=== PATIENT | female | born 1955 | race Caucasian/White ===

== ENCOUNTER → 2018-12-07 07:37 | Outpatient (CLI) | payer MEDICAID, SELFPAY ==
--- NOTE | 2018-12-07 07:40 | BI_ITS ---
MAMMOGRAPHY - BILATERAL SCREENING REASON FOR EXAM: Female, 63 years old. Routine annual screening examination. PERTINENT HISTORY: Non-contributory. Prior left stereotactic breast biopsy. TECHNIQUE: Digital bilateral breast renetta (3D mammographic acquisition) in the CC and MLO projections. 2-D mediolateral oblique (MLO) and craniocaudad (CC) views of both breasts were obtained. CAD: Full Field Digital Mammography with Computer Added Detection was performed. COMPARISON: Comparison is made with prior study dated January 09, 2016 and March 09, 2013. FINDINGS: Breast Composition: The breasts are extremely dense, which lowers the sensitivity of mammography. There are no dominant masses or suspicious calcifications. A tissue clip marker is now seen in the upper lateral portion of the left breast. Decreased calcification. No other significant abnormalities are identified. BI/SCREENING MAMM (CAD), BILAT IMPRESSION: Stable bilateral screening mammogram. Yearly follow-up mammogram recommended. (A) ASSESSMENT CATEGORY: BIRADS Category 2: Benign. A letter regarding these results will be sent to the patient by the facility within 30 days. Approximately 10% of breast cancers are not detected by mammography. A normal mammogram should not delay biopsy of a clinically suspicious abnormality. [id number] Electronically Signed: Werner Hinds MD at 9:46 EST , Service support ,
== END ==
PROVIDERS: Referring Provider Nurse Practitioner Family; Visit Provider Nurse Practitioner Family
DX: Z12.31 Encounter for screening mammogram for malignant neoplasm of breast (principal)
CPT/HCPCS: 77063; 77067

== ENCOUNTER → 2021-06-27 10:29 | Outpatient (CLI) | payer MEDICARE, SELFPAY ==
--- NOTE | 2021-06-27 10:55 | RAD_ITS ---
ACR Level 3 findings have been noted. An addendum which confirms receipt of the report will follow. STUDY: X-RAY CHEST REASON FOR EXAM: Female, 66 years old. Smoker TECHNIQUE: Frontal and lateral views of the chest COMPARISON: None. FINDINGS: There is a 4.6 x 4.5 cm rounded mass in the left upper lobe which is highly suspicious for neoplasm. There are no pulmonary infiltrates There are no pleural effusions. There is no pneumothorax. The heart is normal in size. The visualized osseous structures are within normal limits. RAD/Chest PA and Lateral IMPRESSION: 4.6 x 4.5 cm rounded mass in the left upper lobe which is highly suspicious for neoplasm. Further evaluation with CT is recommended. Electronically Signed: Angus Payne MD at 12:35 EDT Tel , Service support ,
[2021-06-27 11:27] LABS: Absolute Lymphocyte Count 1.55 X10^3/uL (0.83-4.51); Absolute Neutrophil Count 3.5 X10^3/uL (2.0-7.7); Basophil# 0.04 X10^3/uL; Basophil% 0.7 % (0-1); Eosinophil# 0.03 X10^3/uL; Eosinophils% 0.5 % (0-5); Hematocrit 47.1 % (37-47); Hemoglobin 15.4 g/dL (12.0-15.0); Lymphocyte # 1.55 X10^3/ul (0.83-4.51); Lymphocyte % 27.7 % (19-41); Mean Corp Hgb Conc 32.7 g/dL (32-36); Mean Corpuscular Hgb 31.4 pg (27.0-32.0); Mean Corpuscular Volume 96.1 fL (81-99); Mean Platelet Vol. 9.6 fl (6.2-12.0); Monocyte% 7.2 % (0-10); NRBC Flagged by Analyzer 0 % (0-5); Neutrophil # 3.51 X10^3/uL (2.7-7.7); Neutrophil % 62.8 % (47-70); Platelet Count 295 K/mm3 (150-450); RBC Distribution Width CV 12.4 % (11.6-14.6); RBC Distribution Width SD 43.8 fl (35.1-43.9); White Blood Count 5.6 K/mm3 (4.4-11.0)
[2021-06-27 11:56] LABS: Vitamin B12 476 pg/mL (211-911)
[2021-06-27 12:09] LABS: ALB/GLOB Ratio 0.7 RATIO (0.9-2.4); AST(SGOT) 33 U/L (15-37); Alanine Aminotransfer ALT/SGPT 30 U/L (13-56); Albumin, Serum 3.4 g/dL (3.2-5.0); Alkaline Phosphatase 96 U/L (45-117); Anion Gap 4 (5-15); BUN 6 mg/dL (7-18); BUN/Creat Ratio 11.2 RATIO (10-20); Calcium,Total 9.3 mg/dL (8.5-10.1); Chloride 103 mmol/L (98-107); Creatinine, Serum 0.54 mg/dL (0.55-1.02); EST Glomerular Filtration Rate 121 mL/min (>60); Est Glom Filt Rate - Afr Amer 147 mL/min (>60); Globulin 4.7 g/dL (2.2-4.2); Glucose 102 mg/dL (74-106); Potassium 3.9 mmol/L (3.5-5.1); Protein, Total 8.1 g/dL (6.4-8.2); Sodium Level 135 mmol/L (136-145); T4 Free Direct 0.81 ng/dL (0.76-1.46); Thyroid Stim Hormone (TSH) 0.91 uIU/mL (0.358-3.74)
[2021-06-27 13:30] LABS: Iron 44 ug/dL (50-170); Iron Binding Capacity,Total 352 ug/dL (250-450); PERCENT IRON SATURATION 12.5 % (15.0-55.0)
[2021-06-28 11:21] LABS: Thyroid Peroxidase AB < 8 IU/mL (0-34)
[2021-07-02 18:10] LABS: Vitamin D 1,25-Dihydroxy 53.3 pg/mL (19.9-79.3)
== END ==
LOC: LAB 10:44 → RAD 10:44 → LAB 10:45
DX: R19.7 Diarrhea, unspecified (principal); F17.200 Nicotine dependence, unspecified, uncomplicated; R63.4 Abnormal weight loss; E55.9 Vitamin D deficiency, unspecified; R53.83 Other fatigue
CPT/HCPCS: 36415; 71046; 80053; 82607; 82652; 82746; 83540; 83550; 84439; 84443; 85025; 86376

== ENCOUNTER → 2021-07-01 08:40 | Outpatient (CLI) | payer MEDICARE, SELFPAY | PROVIDERS: Referring Provider Nurse Practitioner Adult Health; Visit Provider Nurse Practitioner Adult Health | DX: R19.7 Diarrhea, unspecified (principal); R63.4 Abnormal weight loss | CPT/HCPCS: 82274 ==

== ENCOUNTER → 2021-07-03 06:43 | Outpatient (CLI) | payer MEDICARE, SELFPAY ==
--- NOTE | 2021-07-03 06:50 | CT_ITS ---
ACR Level 3 findings have been noted. An addendum which confirms receipt of the report will follow. STUDY: CT CHEST WITH CONTRAST REASON FOR EXAM: Female, 66 years old. BENIGN NEOPLASM OF LEFT BRONCHUS AND LUNG RADIATION DOSAGE (If Supplied By Facility): CTDIvol = ( 7.86 ) mGy, DLP = ( 224.69 ) mGycm TECHNIQUE: Transaxial imaging was performed following intravenous administration of IV 50mL Isovue-370. Multiplanar coronal and sagittal images were reformatted. Individualized dose optimization techniques were used for this CT. COMPARISON: 03/24/2013 FINDINGS: 4.2 x 3.8 x 4.6 cm spiculated left upper lobe pulmonary mass with lateral pleural tethering. 4 mm left lower lobe subpleural nodule. There are a few scattered groundglass densities in both lungs. There is no demonstrated pleural abnormality. Normal heart and pericardium. Normal mediastinum. Small left hilar lymph nodes. Normal enhanced pulmonary arteries. Normal aorta arch and descending thoracic aorta. There are multi-level degenerative changes of the thoracic spine. There is no demonstrated abnormality of the visualized upper abdomen. CT/Chest WITH Contrast IMPRESSION: 4.2 cm left upper lobe pulmonary mass is highly suspicious for lung cancer. Small left hilar lymph nodes may represent local regional spread. Electronically Signed: Chele Gee MD at 7:51 EDT Tel , Service support ,
== END ==
PROVIDERS: Referring Provider Nurse Practitioner Adult Health; Visit Provider Nurse Practitioner Adult Health
DX: D14.32 Benign neoplasm of left bronchus and lung (principal); R63.4 Abnormal weight loss; R53.83 Other fatigue
CPT/HCPCS: 71260

== ENCOUNTER → 2021-07-15 15:56 | Outpatient (CLI) | payer MEDICARE, SELFPAY ==
--- NOTE | 2021-07-15 13:30 | PET_ITS ---
EXAMINATION: FDG PET-CT INDICATIONS: A 66-year-old female with history of pulmonary nodularity. COMPARISON EXAMINATION: CT of the chest report dated 07/03/21 INDEX LESION SIZE SUV INTERPRETATION Left upper lung-left upper lobe 41.7 x 41.2-mm (frame 192) 14.5 Fulfills quantitative criteria for viable neoplasm, histopathologic analysis recommended NON-INDEX LESION SIZE SUV INTERPRETATION Diffuse non-nodular proximal to mid gastric body 5.0 (max) May warrant further investigation with direct visualization if the patient demonstrates corresponding epigastric symptomatology TECHNIQUE: Following the intravenous administration of 13.68 mCi of F-18 deoxyglucose via the left antecubital fossa, multiplanar image acquisitions of the neck, chest, abdomen and pelvis to level of mid thigh, obtained at one hour post radiopharmaceutical administration contemporaneously interpreted with the current CT of the neck, chest, abdomen and pelvis, to level of mid thigh, dated 07/15/[address] of the chest report dated 07/03/21 reveals: BLOOD GLUCOSE LEVEL:?? 89 mg/dl?HEIGHT:?64 inches?WEIGHT: 115 lbs. FINDINGS: 1. An increase in FDG distribution is defined in the left upper lung-left upper lobe generating a calculated maximal standard uptake value of 14.5. The maximal axial diameter of the corresponding parenchymal density-mass on review of CT of the chest dated 07/15/21 is 41.7-mm (transverse) x 41.2-mm (AP). 2. Diffuse non-nodular increased FDG concentration extends from the proximal to mid gastric body generating a calculated maximal standard uptake value of 5.0. 3. Normal physiologic distribution of the radiopharmaceutical is apparent in the hepatic (2.0) and splenic parenchyma, both renal units, bladder and visualized intestinal tract. The visualized portion of the cerebral cortical-subcortical structures demonstrate symmetric and preserved glucose metabolism. Diffuse radiopharmaceutical concentration is noted in all four quadrants of the abdomen and pelvis. Pertinent CT findings are as follows: CHEST: There is atherosclerotic calcification defined in the thoracic aorta without evidence of dilatation-aneurysm formation. Coronary arterial calcification is observed. Bilateral subcentimeter axillary soft tissue densities with fatty hilus are non-glucose avid. There are no additional parenchymal densities-nodules defined in the right and left hemithorax with discernible increased FDG concentration. ABDOMEN AND PELVIS: There is borderline fatty metamorphosis-steatosis defined in the hepatic parenchyma. There is atherosclerotic calcification defined in the abdominal aorta without evidence of dilatation-aneurysm formation. Pelvic arterial calcification is defined. Bilateral inguinal soft tissue densities with fatty hilus are ametabolic. SKELETAL: Degenerative changes are noted in the cervical, thoracic and lumbar spine without evidence of increased radiopharmaceutical concentration. There is no evidence of sclerotic, mixed sclerotic-lytic and/or lytic changes noted on review of the skeletal structures manifesting an increase in glucose metabolism. PET/PET/CT Tumor Base -Thigh Init IMPRESSION: 1. Increased FDG concentration observed in the left upper lung-left upper lobe fulfills quantitative criteria for malignant transformation. Histopathologic analysis is recommended. (Judith et al, Annals of Internal Medicine, 138:724, 2003). 2. Diffuse non-nodular enhanced fluorine labeled glucose uptake extending from the proximal to mid gastric body is most consistent with physiologic radiopharmaceutical concentration. If the patient demonstrates corresponding epigastric symptomatology, correlation with direct visualization is advised. Electronic Signature Wolf Monroy D.O. Accurate Quantification of SUVs for this report are calculated using the exclusive [employer]. (U.S. Patent No. 10, 674, 983). Standardization and correction of the FDG SUV metric via [employer] technology allow for vendor non-specific objective quantitative examination comparison and optimization of the sensitivity and specificity of the FDG PET-CT examination. Electronically Signed: Wolf Monroy DO at 21:29 EDT Tel , Service support ,
== END ==
PROVIDERS: Referring Provider Nurse Practitioner Adult Health; Visit Provider Nurse Practitioner Adult Health
DX: R91.1 Solitary pulmonary nodule (principal)
CPT/HCPCS: 78815; A9552

== ENCOUNTER → 2021-07-30 09:09 | Outpatient (CLI) | payer MEDICARE, SELFPAY ==
[2021-07-30] VITALS (11 sets, daily range): BP systolic 127–149; BP diastolic 61–87; PULSE 77–100; RESP 13–25; TEMP 36.8; O2SAT 87–99; BMI 19.4
--- NOTE | 2021-07-30 | IMM_PTH ---
PATIENT: MEREDITH BLUE LOC: CT U#:[id number] AGE/SX: 70/F ROOM: RE07/30/[address]: Dr. Ari Masterson MD : 1955 BED: DIS: SPEC #: [id number] RECD: 07/30/21 13:53 STATUS: SHIVA REQ #: [id number] MARIA ESTHER: 07/30/21 00:[address]: Ari Masterson DEPT: IMMUNOHISTOCHEMISTRY RECD BY: Keeley Morillo ENTERED: 07/30/21 13:55 SP TYPE: IMMUNO OTHR DR: [facility], [place] Tissues: Left upper lobe of lung, NOS Procedures: RCC (add) NAPSIN A (add) CK20 (add) CK5-6 (add) CK7 (add) CK8 (add) HEP PAR (add) HI (add) TTF1 (add) Pankeratin (add) P40 (add) ER (initial) PHYSICIAN & [address] [address] SPECIMEN INFORMATION: Tissue Source: Left upper lobe lung, CT-guided core biopsy Clinical Info: Rule out non-small cell carcinoma Specimen Number: [id number] CPT code: 98641, 94698 x11 METHODOLOGY: Deparaffinized sections of prefer/formalin-fixed tissue or PAP/DQ stained slides are incubated with monoclonal/polyclonal antibodies/oligonucleotide probes. Localization is made via biotin free immunoperoxidase method. Appropriate controls are performed and reacted as expected. Results on target cell population are indicated in the following table: RESULTS: ANTIBODY / CLONE RESULT ER (6F11) positive, weak and focal HI (1E2) negative AE1-3 (AE1/AE3/PCK26) positive CK7 (OV-TL12/30) positive CK8 (11ikvwG47) positive CK20 (KS20.8) negative TTF-1 (8G7G3/1) positive Napsin A (Rabbit Polyclonal) positive HepPar (OCh1E5) positive RCC (PN-15) negative CK5-6 (D5 & 1684) negative P40 (BC28) negative These tests were developed and their performance characteristics determined by [facility]. They may not have been cleared or approved by the U.S. Food and Drug Administration. The FDA has determined that such clearance or approval is not necessary. The above immunohistochemical/dualISH markers are ordered and reviewed by the Pathologist. INTERPRETATION: Left upper lobe lung, CT-guided core biopsy: Non-small cell carcinoma, favor adenocarcinoma, consistent with lung primary. SJ:vijay 07/31/2021 Case has been reviewed in consultation with Dr. Nam who concurs with the above diagnosis. IDC:AM
--- NOTE | 2021-07-30 09:10 | CT_ITS ---
PROCEDURE: CT-guided percutaneous left lung biopsy. CLINICAL HISTORY: Female, 66 years old. LEFT UPPER LOBE LUNG MASS CONSENT: Informed, written consent was obtained from the patient, prior to procedure and following discussion of risks, benefits, alternatives and personnel. Patient oriented dose modulation technique utilized. SEDATION: VERSED 2 mg and FENTANYL 100 mcg intravenous. PERFORMING PHYSICIAN: Gilberto Espinoza MD DATE OF PROCEDURE: 07/30/2021 LINE SERVICE PERSON: NONE ESTIMATED BLOOD LOSS: Minimal. SPECIMENS REMOVED: Sample sent to laboratory with appropriate orders. COMPLICATIONS: Parenchymal contusions. TECHNIQUE: Patient was positioned supine on the CT table. A timeout procedure was obtained. Limited CT scan imaging of the chest was performed and demonstrated the 5.5 cm left upper lobe lung mass. An access site was marked on the patient''s skin after which the overlying skin was prepared and draped in standard, sterile fashion. The skin was anesthetized with lidocaine and a small skin incision was made. Under CT fluoroscopic guidance a 17-gauge coaxial introducer needle was intermittently advanced into the left upper lobe lung mass. An 18 gauge coaxial core biopsy needle was then inserted through the needle and a core biopsy specimen was obtained and evaluated by the pathologist on site. Two additional 18-gauge core biopsy specimens were then obtained and placed in formalin and sent to lab for analysis. The access needle was removed and sterile dressing was applied. Follow-up imaging demonstrated no evidence of pneumothorax however there were parenchymal contusions seen around of the mass. The patient tolerated the procedure well with no immediate complications and was transferred to recovery in stable condition. Serial follow-up chest x-rays will be obtained. CT/Biopsy/Inj or Needle Placement IMPRESSION: Technically successful percutaneous CT biopsy of a left upper lobe lung mass, three 18-gauge core biopsy specimens were obtained and sent to lab for analysis. Procedure was complicated with focal parenchymal contusions, follow-up chest x-rays will be obtained. Electronically Signed: Gilberto Espinoza MD at 11:48 EDT Tel , Service support ,
[2021-07-30 09:24] LABS: Absolute Lymphocyte Count 1.53 X10^3/uL (0.83-4.51); Absolute Neutrophil Count 3.9 X10^3/uL (2.0-7.7); Basophil# 0.04 X10^3/uL; Basophil% 0.7 % (0-1); Eosinophil# 0.01 X10^3/uL; Eosinophils% 0.2 % (0-5); Hemoglobin 15.5 g/dL (12.0-15.0); Lymphocyte # 1.53 X10^3/ul (0.83-4.51); Lymphocyte % 25.1 % (19-41); Mean Corp Hgb Conc 33.7 g/dL (32-36); Mean Corpuscular Hgb 32.2 pg (27.0-32.0); Mean Corpuscular Volume 95.4 fL (81-99); Mean Platelet Vol. 9.1 fl (6.2-12.0); Monocyte# 0.55 X10^3/uL; NRBC Flagged by Analyzer 0 % (0-5); Neutrophil # 3.94 X10^3/uL (2.7-7.7); Neutrophil % 64.5 % (47-70); Platelet Count 296 K/mm3 (150-450); RBC Distribution Width CV 14.9 % (11.6-14.6); RBC Distribution Width SD 52.9 fl (35.1-43.9); Red Blood Count 4.82 M/mm3 (4.2-5.4); White Blood Count 6.1 K/mm3 (4.4-11.0)
[2021-07-30 09:32] LABS: Partial Thromboplast Time 25.7 Seconds (24.1-36.2); Prothrombin Time (Protime)PT. 12.1 SECONDS (11.7-14.9)
--- NOTE | 2021-07-30 10:30 | ASPIGT_PTH ---
PATIENT: MEREDITH BLUE LOC: CT U#:[id number] AGE/SX: 70/F ROOM: RE07/30/[address]: Dr. Ari Masterson MD : 1955 BED: DIS: SPEC #: [id number] RECD: 07/30/21 11:18 STATUS: SHIVA REEzekiel #: [id number] MARIA ESTHER: 07/30/21 10:[address]: Ari Masterson DEPT: SURGICAL PATHOLOGY RECD BY: Pily Savage ENTERED: 07/30/21 11:18 SP TYPE: ASP RAD OTHR DR: [facility] Tissues: Lung, NOS Procedures: FNA Specimen Adequacy Special Stain Group II Surgery Specimen Level IV Imprint (control) HEADER OPERATION: Left upper lobe, CT-core biopsy PRE-OP DIAGNOSIS: Left lung mass TISSUE SUBMITTED: Left lung 18-gauge core x3 MICROSCOPIC DIAGNOSIS Left lung, CT-guided core biopsy: Non-small cell carcinoma, favor adenocarcinoma, consistent with lung primary. See comment. BREANNE:vijay 07/31/2021 COMMENT The specimen is evaluated at the time of biopsy by Dr. Cantrell. Immediate Evaluation = Malignant cells present derived from non-small cell carcinoma. Immunohistochemistry ([id number]) supports the above diagnosis. The tumor also shows focal necrosis and extensive desmoplastic reaction (fibrosis). Molecular studies on the tumor can be performed if clinically indicated. Please notify the laboratory if they are needed. Case has been reviewed in consultation with Dr. Nam who concurs with the above diagnosis. IDC:AM MICROSCOPIC DESCRIPTION Slides are reviewed. GROSS DESCRIPTION Received in fixative is one container labeled with the patient's name and designated left lung. The specimen consists of multiple elongated fragments of carrillo soft tissue that in aggregate measure 1.5 x 0.1 x 0.1 cm. The specimen is totally submitted in one cassette. One touch imprint is prepared at the time of core biopsy. / BREANNE:vijay 07/30/21 TC:0 CPT: 70250, 23993
[2021-07-30] MEDS: Midazolam 2 MG/2 ML Syringe IV ×2 (10:31→10:38)
[2021-07-30] MEDS: fentaNYL 100 MCG/2 ML Ampul IV ×2 (10:32→10:38)
[2021-07-30] MEDS: 0.9% Saline Lock 10 ML Syringe IV (10:34)
[2021-07-30] MEDS: Lidocaine 2% (20 ml mdv) 20 ML Vial INFILT (10:40)
--- NOTE | 2021-07-30 11:00 | RAD_ITS ---
INDICATION: POST BIOPSY -- immediately post lung biopsy EXAMINATION/TECHNIQUE: X-RAY - XR Chest 2 Views COMPARISON: 06/27/2021. FINDINGS: LINES/DEVICES: None. LUNGS: 5.5 cm mass visualized in the left upper lobe demonstrating subtle haziness in its contour is most prominent inferiorly consistent with the parenchymal contusions visualized on CT scan. No evidence of pneumothorax is visualized, mild blunting of the left costophrenic angle is seen in comparison to the prior study that could represent subtle layering of the parenchymal contusions. Unremarkable aeration of the right hemithorax. The bronchovascular and interstitial lung markings otherwise unremarkable. MEDIASTINUM AND CARDIOVASCULAR STRUCTURES: Cardiac silhouette not enlarged. Central airways and mediastinal contour are unremarkable. BONES AND SOFT TISSUES: Unremarkable. RAD/Chest Insp/Exp 2 View IMPRESSION: 5.5 cm parenchymal lung mass visualized in the left upper lobe with subtle adjacent parenchymal contusion, no evidence of pneumothorax is seen. Electronically Signed: Gilberto Espinoza MD at 11:27 EDT Tel , Service support ,
[2021-07-30 11:45] LABS: CREATININE FINGERSTICK 0.7 mg/dL (0.55-1.02); EGFR FINGERSTICK > 60.0000 mL/min (>60)
--- NOTE | 2021-07-30 13:00 | RAD_ITS ---
INDICATION: 2 HRS POST BIOPSY -- 2 hours post lung biopsy EXAMINATION/TECHNIQUE: X-RAY - XR Chest 2 Views COMPARISON: Chest x-ray obtained the same day at 10:56 AM. FINDINGS: LINES/DEVICES: None. LUNGS: 5.5 cm mass visualized in the left upper lung demonstrates no significant change in comparison to the prior study. No significant stranding of the adjacent soft tissues is visualized, subtle haziness along the lateral aspect of the left upper chest wall demonstrates no significant increase in comparison to the prior study. No evidence of layering fluid is visualized, the left costophrenic angle is unremarkable. No evidence of pneumothorax is seen. MEDIASTINUM AND CARDIOVASCULAR STRUCTURES: Cardiac silhouette not enlarged. Central airways and mediastinal contour are unremarkable. BONES AND SOFT TISSUES: Unremarkable. RAD/Chest Insp/Exp 2 View IMPRESSION: Left upper lobe mass again visualized. No evidence of increased parenchymal hemorrhage or pneumothorax is seen in comparison to the prior study. Electronically Signed: Gilberto Espinoza MD at 13:10 EDT Tel , Service support ,
== END | disposition home or self-care (01) ==
PROVIDERS: Referring Provider Internal Medicine Hematology & Oncology; Visit Provider Internal Medicine Hematology & Oncology
DX: C34.12 Malignant neoplasm of upper lobe, left bronchus or lung (principal)
CPT/HCPCS: 36415; 71046; 77012; 85025; 85610; 85730; 88172; 88305; 88313; 88341; 88342; 99156; J7040; A4216

== ENCOUNTER → 2021-07-30 10:40 | Outpatient (CLI) | payer MEDICARE, SELFPAY ==
--- NOTE | 2021-07-30 10:42 | MRI_ITS ---
EXAM: MR HEAD WITHOUT AND WITH INTRAVENOUS CONTRAST CLINICAL INDICATION: LUNG MASS TECHNIQUE: Multiplanar and multisequence MR images of the brain were obtained without and with intravenous contrast. This report was created using [employer] report generation technology. CONTRAST: IV 10mL dOTAREM COMPARISON: None. FINDINGS: BRAIN AND EXTRA-AXIAL SPACES: No diffusion weighted signal abnormality. No intra- or extra-axial hemorrhage. SELLA: Unremarkable. Normal sella turcica, pituitary gland, infundibular stalk, optic chiasm and hypothalamus. AUDITORY SYSTEM: Unremarkable. The internal auditory canals are patent. BONES/JOINTS: Unremarkable. No discrete lytic or blastic abnormalities. SINUSES: Unremarkable as visualized. Clear. MASTOID AIR CELLS: Unremarkable as visualized. Clear. ORBITS: Unremarkable as visualized. Both globes, extraocular muscles, optic nerves and retrobulbar fat appear unremarkable. VASCULATURE: Venous angioma in the left frontal lobe. MRI/Brain W/WO Contrast IMPRESSION: Venous angioma in the left frontal lobe. Electronically Signed: Christopher Guevara MD at 18:21 EDT , Service support ,
== END ==
LOC: MRI 10:42
PROVIDERS: Visit Provider Internal Medicine Hematology & Oncology
DX: Z01.818 Encounter for other preprocedural examination (principal); C34.12 Malignant neoplasm of upper lobe, left bronchus or lung
CPT/HCPCS: 32408; 36415; 70553; 71046; 77012; 85025; 85610; 85730; 88172; 88305; 88313; 88341; 88342; 99156; A9575; J7040; A4216

== ENCOUNTER → 2021-08-11 09:30 | Outpatient (CLI) | payer MEDICARE, SELFPAY ==
--- NOTE | 2021-08-12 08:32 | PFT ---
INTRODUCTION: The patient is a 66-year-old female that presents for pulmonary function studies secondary to a diagnosis of lung mass. Respiratory therapy reported good patient effort. Bronchodilators were used during testing. INTERPRETATION: Forced expiration spirometry demonstrates the presence of a mild large airways obstructive ventilatory defect. There was no significant response to aerosolized bronchodilators. Spirograms are of good quality and plateau gradually indicating slow emptying of the lungs. Body plethysmography was performed and reveals lung volumes to be within normal limits. Diffusing capacity by single breath CO is also within normal limits. IMPRESSION: Irreversible mild large airways obstructive ventilatory defect with preserved lung volumes and diffusing capacity.
== END ==
PROVIDERS: Referring Provider Internal Medicine Hematology & Oncology; Visit Provider Internal Medicine Hematology & Oncology
DX: C34.12 Malignant neoplasm of upper lobe, left bronchus or lung (principal); R91.1 Solitary pulmonary nodule
CPT/HCPCS: 94060; 94726; 94729

== ENCOUNTER → 2021-09-01 12:31 | Outpatient (CLI) | payer MEDICARE, SELFPAY ==
--- NOTE | 2021-09-01 12:34 | STEWCON_ITS ---
Reason For Study: PREOP Stress Results Protocol: Antonio Protocol WITH DEFINITY Maximum Predicted HR: 154 bpm Target HR: 131 bpm % Maximum Predicted HR: 88 % DurationHeart Rate Stage (mm:ss) (bpm) BP Comment BASELINE 81 120/745 CC DEFINITY, USED FOR RESPIRATORY STAGE 1 3:00 116 142/82 STAGE 2 3:00 130 162/80 STAGE 3 1:21 136 / SOB NOTED, NO CHEST PAIN RECOVERY 96 128/84 Stress Duration: 7:21 mm:ss Maximum Stress HR: 136 bpm Baseline Echocardiogram Findings Stress Echo Wall motion Data Resting WM Intermediate WM Stress WM Resting Wall Motion Wall Motion Stress All segments Normal. All segments Hyperkinetic. Ejection Fraction 55 %. Ejection Fraction 70 %. Stress Results Heart rate response: Adequate Blood pressure response: Normal resting blood pressure-appropriate response Rhythm: Rare PVC during exercise and recovery Functional capacity: Average Stop secondary to: Dyspnea. EKG Data Baseline ECG: Sinus rhythm. Peak exercise ECG: Somatic/motion artifact with no obvious ECG changes. Symptoms with Stress No complaint of chest discomfort during exercise or recovery. ECHO/Stress Test Echo W/Contrast Interpretation Summary Contrast injection performed Negative (adequate) stress echocardiogram Ordering Physician: ALAYNA HAWLEY Referring Physician: ALAYNA HAWLEY Performed By: Omaira Whitt, RDCS, RVT
== END ==
DX: Z01.818 Encounter for other preprocedural examination (principal); C34.12 Malignant neoplasm of upper lobe, left bronchus or lung; R06.02 Shortness of breath
CPT/HCPCS: 93017; 93350; Q9957; A4216; C8928; J3490

== ENCOUNTER → 2021-09-11 | Outpatient (CLI) | payer MEDICARE, SELFPAY ==
[2021-09-11 22:16] LABS: Probe Check PASS; Specimen Processing Control PASS
== END | disposition home or self-care (01) ==
LOC: LABSPEC 09:35
PROVIDERS: Referring Provider Physician Assistant; Visit Provider Physician Assistant
DX: U07.1 COVID-19 (principal)
CPT/HCPCS: 87635; U0005; U0003

== ENCOUNTER → 2021-10-08 13:26 | Outpatient (CLI) | payer MEDICARE, SELFPAY ==
--- NOTE | 2021-10-08 13:29 | EKG12_ITS ---
Test Reason : UNSPEC AFIB Blood Pressure : / mmHG Vent. Rate : 090 BPM Atrial Rate : 090 BPM P-R Int : 114 ms QRS Dur : 082 ms QT Int : 390 ms P-R-T Axes : 069 026 236 degrees QTc Int : 477 ms Normal sinus rhythm T wave abnormality, consider inferior ischemia T wave abnormality, consider anterolateral ischemia Prolonged QT Abnormal ECG Confirmed by CHAMP DE PAZ, DEOBRAH ([id number]), newspaper photo editor ANUPAMA SWAIN ([id number]) on 10/10/2021 1:02:11 PM Referred By: Petra Qiu Confirmed By:DEBORAH OAKES MD
== END ==
LOC: PSN 13:28
PROVIDERS: Referring Provider Nurse Practitioner Adult Health; Visit Provider Nurse Practitioner Adult Health
DX: I48.91 Unspecified atrial fibrillation (principal)
CPT/HCPCS: 93005

== ENCOUNTER 2021-12-29 10:56 | Outpatient (CLI) | payer MEDICARE, SELFPAY ==
--- NOTE | 2021-12-29 11:03 | ECHOD_ITS ---
Version 2 Reason For Study: A. fib Procedure This was a 2D Doppler, Color Flow transthoracic echocardiogram. Exam performed in department. Left Ventricle Normal LV size. Left ventricular systolic function is normal. The estimated ejection fraction is 60 %. Stage 1 diastolic dysfunction. No regional wall motion abnormalities noted. Right Ventricle Normal RV size. Normal systolic function. Atria Normal left atrium. Normal right atrium. Mitral Valve Normal mitral valve. Tricuspid Valve Normal tricuspid valve. Aortic Valve Normal aortic valve. Pulmonic Valve Normal pulmonic valve. Great Vessels Normal aortic root. The pulmonary artery is normal size. Normal inferior vena cava. Pericardium/Pleural No pericardial effusion. MMode/2D Measurements & Calculations LVIDd: 4.1 cm IVSd: 0.92 cm Ao root diam: 2.8 cm LVIDs: 2.6 cm LVPWd: 0.90 cm FS: 36.1 % LAV(MOD-bp): 22.0 ml LVAd ap4: 20.3 cm2 SV(MOD-sp4): 35.5 ml LAV(MOD-bp) Indexed: 14.2 ml/m2 LVLd ap4: 6.9 cm LAV(MOD-sp2): 16.4 ml EDV(MOD-sp4): 52.1 ml LAV(MOD-sp4): 28.5 ml EDV(sp4-el): 50.8 ml LVAs ap4: 10.7 cm2 LVLs ap4: 6.2 cm ESV(MOD-sp4): 16.6 ml ESV(sp4-el): 15.8 ml EF(MOD-sp4): 68.1 % EF(sp4-el): 68.9 % SV(sp4-el): 35.1 ml LA A4 area: 12.4 cm2 LA dimension(2D): 2.8 cm RA A4 area: 12.8 cm2 Doppler Measurements & Calculations MV E max louis: 35.9 cm/sec Lat Peak E' Louis: 7.6 cm/sec Med Peak E' Louis: 4.7 cm/sec MV A max louis: 61.2 cm/sec E/E' lat: 4.7 E/E' med: 7.7 MV E/A: 0.59 Ao V2 max: 128.6 cm/sec LV V1 max: 98.0 cm/sec PA V2 max: 93.5 cm/sec Ao max P.6 mmHg LV V1 max P.8 mmHg ECHO/Echo Complete Interpretation Summary Normal LV size. Left ventricular systolic function is normal. The estimated ejection fraction is 60 %. Stage 1 diastolic dysfunction. Compared to previous study, the left ventricular systolic function has improved .. Ordering Physician: Lj Martell Referring Physician: [facility] Performed By: Dayan King RDCS
== END 2021-12-29 23:59 | disposition home or self-care (01) ==
LOC: CVS 11:01
PROVIDERS: Referring Provider Internal Medicine Cardiovascular Disease; Visit Provider Internal Medicine Cardiovascular Disease
DX: I97.89 Other postprocedural complications and disorders of the circulatory system, not elsewhere classified (principal); I48.91 Unspecified atrial fibrillation
CPT/HCPCS: 93306

== ENCOUNTER 2022-01-06 13:14 | Outpatient (CLI) | payer MEDICARE, SELFPAY ==
--- NOTE | 2022-01-06 13:38 | CT_ITS ---
STUDY: CT CHEST T ABDOMEN WITH CONTRAST REASON FOR EXAM: Female, 66 years old. Chest pain/pressure, history of lung CVA RADIATION DOSAGE (If Supplied By Facility): CTDIvol = ( 7.49 ) mGy, DLP = ( 379.23 ) mGycm TECHNIQUE: Transaxial imaging was performed following intravenous administration of IV 100mL Isovue-300. Multiplanar coronal and sagittal images were reformatted. Individualized dose optimization techniques were used for this CT. COMPARISON: 07/30/2021 FINDINGS: CHEST Lungs are mildly hyperexpanded with chronic interstitial changes. There is volume loss in the left hemithorax likely due to previous surgery. There are scattered groundglass opacifications in both lung barroso suggesting active alveolitis. There is nonspecific pleural thickening in both hemithoraces. There are 2 separate noncalcified nodules in the left lower lobe on axial image 62 measuring 4.5 mm. There is a noncalcified nodule measuring 6 mm in the right lower lobe on axial image 80, there is a pleural-based 3 mm noncalcified nodule in the right lower lobe on axial image 95. These should all be considered metastatic until proven otherwise. Soft tissue windows show normal-appearing thyroid gland. No suspicious axillary, mediastinal, or perihilar adenopathy. No pleural or pericardial effusions. There are calcified coronary vessels. There is a suspicious necrotic soft tissue mass in the left posterior chest on axial images 61 through 72 measuring 2.4 x 1.8 cm also concerning for a metastasis. There are old healed left rib fractures. ABDOMEN Normal liver. Normal gallbladder and extrahepatic biliary system. Normal spleen. Normal pancreas. Normal bilateral adrenal glands. Normal right kidney. Normal left kidney. Normal visualized stomach. Normal small intestine. Retained stool noted in the colon There is non-visualization of the appendix. There is diffuse atherosclerotic calcification of the abdominal aorta, without a demonstrated aneurysm. Normal inferior vena cava. Normal retroperitoneum. Normal abdominal wall. There are diffuse degenerative changes of the visualized lumbar spine, and pelvis. CT/CT Chest AND Abd W/ Contrast IMPRESSION: Suspicious subcentimeter noncalcified nodules in both lower lung barroso as described above. These all should be considered metastasis until proven otherwise. 2.4 x 1.8 soft tissue mass in the left posterior chest wall with central necrosis also concerning for metastasis Old healed left rib fractures Calcified coronary vessels Mild underlying emphysema with bleb formation in the apices and postsurgical changes in the left hemithorax. No organized infiltrate, there are scattered groundglass opacifications suggesting pneumonitis. No suspicious solid organ abnormality Retained stool in the colon Degenerative changes in the thoracic and lumbar spine and pelvis Electronically Signed: Ronnie Sanches MD at 10:39 EDT ,
[2022-01-06 13:46] LABS: CREATININE FINGERSTICK 0.8 mg/dL (0.55-1.02); EGFR FINGERSTICK > 60.0000 mL/min (>60)
== END 2022-01-06 23:59 | disposition home or self-care (01) ==
LOC: CT 13:17
PROVIDERS: Referring Provider Internal Medicine Hematology & Oncology; Visit Provider Internal Medicine Hematology & Oncology
DX: C34.31 Malignant neoplasm of lower lobe, right bronchus or lung (principal); C34.32 Malignant neoplasm of lower lobe, left bronchus or lung
CPT/HCPCS: 71260; 74160; Q9967

== ENCOUNTER 2022-01-08 12:26 | Outpatient (CLI) | payer MEDICARE, SELFPAY ==
[2022-01-08 12:44] LABS: Absolute Lymphocyte Count 1.66 X10^3/uL (0.83-4.51); Absolute Neutrophil Count 3.5 X10^3/uL (2.0-7.7); Basophil# 0.04 X10^3/uL; Basophil% 0.7 % (0-1); Eosinophil# 0.03 X10^3/uL; Eosinophils% 0.5 % (0-5); Lymphocyte # 1.66 X10^3/ul (0.83-4.51); Lymphocyte % 29.9 % (19-41); Mean Corpuscular Hgb 33.5 pg (27.0-32.0); Mean Corpuscular Volume 98.3 fL (81-99); Mean Platelet Vol. 9.5 fl (6.2-12.0); Monocyte# 0.37 X10^3/uL; Monocyte% 6.7 % (0-10); NRBC Flagged by Analyzer 0 % (0-5); Neutrophil # 3.45 X10^3/uL (2.7-7.7); Platelet Count 225 K/mm3 (150-450); RBC Distribution Width CV 12.7 % (11.6-14.6); RBC Distribution Width SD 46.6 fl (35.1-43.9); Red Blood Count 4.78 M/mm3 (4.2-5.4); White Blood Count 5.6 K/mm3 (4.4-11.0)
[2022-01-08 13:04] LABS: AST(SGOT) 21 U/L (15-37); Alanine Aminotransfer ALT/SGPT 31 U/L (13-56); Albumin, Serum 3.7 g/dL (3.2-5.0); Alkaline Phosphatase 89 U/L (45-117); Anion Gap 4 (5-15); BUN 7 mg/dL (7-18); BUN/Creat Ratio 10.1 RATIO (10-20); Calcium,Total 9.5 mg/dL (8.5-10.1); Chloride 101 mmol/L (98-107); Creatinine, Serum 0.69 mg/dL (0.55-1.02); EST Glomerular Filtration Rate 90 mL/min (>60); Est Glom Filt Rate - Afr Amer 109 mL/min (>60); Globulin 3.6 g/dL (2.2-4.2); Glucose 129 mg/dL (74-106); Potassium 4.3 mmol/L (3.5-5.1); Protein, Total 7.3 g/dL (6.4-8.2); Sodium Level 134 mmol/L (136-145)
[2022-01-08 20:35] LABS: Xtra Tube EP Lab EXTRA TUBE
== END 2022-01-08 23:59 | disposition home or self-care (01) ==
LOC: LAB 12:27
PROVIDERS: Referring Provider Internal Medicine Hematology & Oncology; Visit Provider Internal Medicine Hematology & Oncology
DX: C34.12 Malignant neoplasm of upper lobe, left bronchus or lung (principal)
CPT/HCPCS: 36415; 80053; 85025

== ENCOUNTER → 2022-04-09 | Outpatient (CLI) | payer MEDICARE, SELFPAY ==
--- NOTE | 2022-04-09 08:20 | CT_ITS ---
STUDY: CT CHEST WITH CONTRAST REASON FOR EXAM: Female, 66 years old. F/U LUNG NODULES AND AP WINDOW LN RADIATION DOSAGE (If Supplied By Facility): CTDIvol = ( 9.03 ) mGy, DLP = ( 187.26 ) mGycm TECHNIQUE: Transaxial imaging was performed following intravenous administration of IV 100mL Isovue-300. Multiplanar coronal and sagittal images were reformatted. Individualized dose optimization techniques were used for this CT. COMPARISON: Comparison is made with prior study dated 01/06/2022. FINDINGS: CHEST The patient is status post left upper lobectomy with mild loss in the left hemithorax. Stable 2, subcentimeter nodules in the left lower lobe as seen on axial image #62. The previously seen 6 mm nodule in the right lower lobe is stable. This is seen on axial image #80. Stable 3 mm noncalcified pleural-based nodule in the right lower lobe as seen on axial image #95. There is no demonstrated pleural abnormality. There are calcifications of the coronary arteries. Normal mediastinum. Normal hilar regions. Normal unenhanced pulmonary arteries. Normal aorta arch and descending thoracic aorta. Normal osseous structures. The previously seen necrotic soft tissue mass in the left posterior chest on axial images #61 through 72 is essentially unchanged. Stable old healed left rib fractures. There is no demonstrated abnormality of the visualized upper abdomen. CT/Chest WITH Contrast IMPRESSION: Stable examination. Electronically Signed: Werner Hinds MD at 9:26 EDT ,
[2022-04-09 08:35] LABS: CREATININE FINGERSTICK < 0.9 mg/dL (0.55-1.02); EGFR FINGERSTICK > 60.0000 mL/min (>60)
== END | disposition home or self-care (01) ==
PROVIDERS: Visit Provider Internal Medicine Hematology & Oncology
DX: R91.1 Solitary pulmonary nodule (principal)
CPT/HCPCS: 71260; Q9967

== ENCOUNTER → 2022-06-15 | Outpatient (CLI) | payer MEDICARE, SELFPAY ==
--- NOTE | 2022-06-15 08:03 | MRI_ITS ---
ACR Level 3 findings have been noted. An addendum which confirms receipt of the report will follow. HISTORY: H/o NSCLC; confusion;speech delay. TECHNIQUE: Multiplanar and multisequence MR images of the brain were obtained before and after the intravenous administration of 10cc dotarem. 655 images. COMPARISON: 07/30/2021. FINDINGS: BRAIN PARENCHYMA: Multiple peripherally enhancing masses with surrounding vasogenic edema and sulcal effacement. 1.7 x 1.9 cm heterogeneously enhancing left parietal mass with subacute to chronic blood products and mild adjacent meningeal enhancement. Mixed cystic and solid appearance in the 1.7 x 2.2 cm left temporal and 9 mm left occipitotemporal masses. No abnormal focus of restricted diffusion or acute infarct identified. Chronic white matter changes in the lucio. Developmental venous anomaly identified in the left parasagittal parietal lobe again seen. CSF SPACES: Mild 2 mm rightward midline shift. Mild mass effect on the left lateral ventricle without hydrocephalus.No effacement of the basal cisterns. VASCULAR SYSTEM: Major intracranial flow voids are maintained. PARANASAL SINUSES AND MASTOID AIR CELLS: No significant air fluid levels. ORBITS: Symmetric contents. MRI/Brain W/WO Contrast IMPRESSION: Heterogeneously enhancing left parietal, temporal, and occipital masses, concerning for metastases. Surrounding edema with mild mass effect and rightward midline shift. Chronic left parasagittal developmental venous anomaly. Electronically Signed: Jenane Dodge MD at 9:59 EDT ,
[2022-06-15 08:41] LABS: CREATININE FINGERSTICK < 0.9 mg/dL (0.55-1.02); EGFR FINGERSTICK > 60.0000 mL/min (>60)
== END | disposition home or self-care (01) ==
PROVIDERS: Referring Provider Nurse Practitioner Family; Visit Provider Nurse Practitioner Family
DX: C34.12 Malignant neoplasm of upper lobe, left bronchus or lung (principal); R41.0 Disorientation, unspecified; R47.9 Unspecified speech disturbances
CPT/HCPCS: 36415; 70553; 80053; 85025; A9575; J7050; A4216; J3490

== ENCOUNTER → 2022-06-23 | Outpatient (CLI) | payer MEDICARE, SELFPAY ==
--- NOTE | 2022-06-23 10:40 | ECHOD_ITS ---
Reason For Study: PREOP Procedure This was a 2D Doppler, Color Flow transthoracic echocardiogram. The exam was of adequate technical quality. Exam performed in department. Left Ventricle Normal LV size. Left ventricular systolic function is normal. The estimated ejection fraction is 60 %. Diastolic function is indeterminate. No regional wall motion abnormalities noted. Right Ventricle Normal RV size. Normal systolic function. Atria Normal left atrium. Normal right atrium. No doppler evidence for ASD. Mitral Valve There is no mitral annular calcification. Mild diffuse mitral valve thickening. Trivial mitral valve insufficiency. Tricuspid Valve Normal tricuspid valve. Trivial tricuspid valve insufficiency. Unable to estimate RV systolic pressure due to insufficient tricuspid regurgitant envelope. Aortic Valve Trisinus/trileaflet aortic valve. Normal aortic valve. Pulmonic Valve The pulmonic valve is not well visualized. Great Vessels Normal sized aortic root. Pericardium/Pleural No pericardial effusion. MMode/2D Measurements & Calculations LVIDd: 5.0 cm IVSd: 0.90 cm Ao root diam: 2.9 cm LVIDs: 2.8 cm LVPWd: 1.0 cm FS: 43.5 % LAV(MOD-sp4): 49.7 ml LVAd ap4: 23.1 cm2 SV(MOD-sp4): 36.9 ml LVLd ap4: 7.0 cm EDV(MOD-sp4): 64.2 ml EDV(sp4-el): 64.5 ml LVAs ap4: 13.8 cm2 LVLs ap4: 6.0 cm ESV(MOD-sp4): 27.3 ml ESV(sp4-el): 26.8 ml EF(MOD-sp4): 57.5 % EF(sp4-el): 58.5 % SV(sp4-el): 37.7 ml LA A4 area: 17.4 cm2 LA dimension(2D): 3.7 cm RA A4 area: 13.3 cm2 Time Measurements MV dec time: 0.28 sec Doppler Measurements & Calculations MV E max louis: 54.5 cm/sec Lat Peak E' Louis: 8.5 cm/sec Med Peak E' Louis: 8.5 cm/sec MV A max louis: 65.5 cm/sec E/E' lat: 6.4 E/E' med: 6.4 MV E/A: 0.83 MV V2 max: 69.6 cm/sec Ao V2 max: 107.5 cm/sec MV max P.9 mmHg MV dec slope: 193.9 cm/sec2 Ao max P.6 mmHg MV V2 mean: 36.6 cm/sec Ao V2 mean: 67.6 cm/sec MV mean P.67 mmHg Ao mean P.1 mmHg MV V2 VTI: 27.7 cm Ao V2 VTI: 26.7 cm LV V1 max: 104.1 cm/sec PA V2 max: 84.3 cm/sec LV V1 max P.3 mmHg LV V1 mean P.7 mmHg LV V1 mean: 57.0 cm/sec LV V1 VTI: 24.3 cm ECHO/Echo Complete Interpretation Summary Left ventricular systolic function is normal. The estimated ejection fraction is 60 %. Mild diffuse mitral valve thickening. Trivial mitral valve insufficiency. Trivial tricuspid valve insufficiency. Unable to estimate RV systolic pressure due to insufficient tricuspid regurgita nt envelope. Diastolic function is indeterminate. Ordering Physician: RAFAEL JIANG Referring Physician: RAFAEL JIANG Performed By: Rosie Wheatley RCS
== END | disposition home or self-care (01) ==
DX: Z01.818 Encounter for other preprocedural examination (principal); C79.31 Secondary malignant neoplasm of brain; C34.12 Malignant neoplasm of upper lobe, left bronchus or lung; I10 Essential (primary) hypertension; F17.200 Nicotine dependence, unspecified, uncomplicated
CPT/HCPCS: 93306

== ENCOUNTER → 2022-07-13 | Outpatient (CLI) | payer MEDICARE, SELFPAY | END | disposition home or self-care (01) | PROVIDERS: Referring Provider Internal Medicine Hematology & Oncology; Visit Provider Internal Medicine Hematology & Oncology | DX: C34.12 Malignant neoplasm of upper lobe, left bronchus or lung (principal); R91.8 Other nonspecific abnormal finding of lung field ==

== ENCOUNTER → 2022-08-14 | Outpatient (CLI) | payer MEDICARE, SELFPAY ==
--- NOTE | 2022-08-14 08:49 | BI_ITS ---
MAMMOGRAPHY - BILATERAL DIAGNOSTIC REASON FOR EXAM: Female, 67 years old. Previous left breast biopsy PERTINENT HISTORY: Non-contributory. TECHNIQUE: Digital examination. Mediolateral oblique (MLO) and craniocaudad (CC) views of both breasts were obtained. CAD: CAD was performed on this study. COMPARISON: 12/07/18 FINDINGS: Breast Composition: The breasts are heterogeneously dense, which may obscure small masses. There are no dominant masses or suspicious calcifications. No other significant abnormalities are identified. BI/DIAG MAMM W/CAD, BILAT IMPRESSION: Stable bilateral diagnostic mammogram. ASSESSMENT CATEGORY: BIRADS Category 2: Benign. A letter regarding these results will be sent to the patient by the facility within 30 days. FOLLOW UP RECOMMENDATION: Yearly follow up mammogram recommended. (A) Approximately 10% of breast cancers are not detected by mammography. A normal mammogram should not delay biopsy of a clinically suspicious abnormality. Electronically Signed: Ronnie Sanches MD at 10:09 EDT ,
== END | disposition home or self-care (01) ==
PROVIDERS: Referring Provider Internal Medicine Hematology & Oncology; Visit Provider Internal Medicine Hematology & Oncology
DX: R94.8 Abnormal results of function studies of other organs and systems (principal); R92.8 Other abnormal and inconclusive findings on diagnostic imaging of breast
CPT/HCPCS: 77062; 77066; G0279

== ENCOUNTER → 2022-11-16 | Outpatient (CLI) | payer MEDICARE, SELFPAY ==
--- NOTE | 2022-11-16 19:37 | MRI_ITS ---
STUDY: MRI BRAIN WITH AND WITHOUT CONTRAST REASON FOR EXAM: Female, 67 years old. planning for brain FSRT -- brain metastases, compare to prior TECHNIQUE: Standardized multiplanar fat and water weighted pulse sequences were obtained. IV CLARISCAN 11mL was administered for the contrast portion of the examination. COMPARISON: Images from prior MR brains dated October 12 and June 15, 2022 but reports are not available at this time. Images and report from MR brain July 30, 2021 reviewed. FINDINGS: Normal size of the ventricles and extra-axial spaces for the patient''s age. Normal white matter tracts of the supratentorial brain. There is no evidence for recent intracranial ischemia or other cause of cytotoxic edema on diffusion weighted imaging (DWI). Moderate nonspecific confluent T2 lengthening of the white matter. Normal bilateral basal ganglia. Normal thalami. There is no extra-axial fluid accumulation. Normal flow voids within the major intracranial circulation suggesting patency by spin echo criteria. Developmental venous anomaly again noted posterior to the first left lateral ventricle. [Ring-enhancing brainstem lesion on the left demonstrates interval enlargement measuring 8 mm. 2 left temporal subcortical lesions appear similar measuring up to 8 mm. Multiple new ring-enhancing lesions are noted including the right perirolandic cortex measuring 12 mm with edema. 5 mm ring-enhancing lesion right parietal cortex posteriorly. Normal sella turcica, pituitary gland, infundibular stalk, optic chiasm and hypothalamus. Normal tectal plate and pineal gland. 5 mm ring-enhancing lesion in right cerebellar hemisphere. Normal basal cisterns. Normal bilateral temporal bones. Normal bilateral internal auditory canals. No demonstrated orbital abnormality, within the constraints of a routine brain study. Normal visualized paranasal sinuses. Normal calvarium and skull base. Normal visualized soft tissue structures. Normal visualized upper cervical spine. MRI/Brain W/WO Contrast IMPRESSION: Multiple new ring-enhancing lesions consistent with metastatic disease progression as noted above. In particular the right robert-Rolandic region demonstrates increased edema. No midline shift or herniation. Electronically Signed: Andres Carlos MD at 20:29 EST ,
[2022-11-17 10:00] LABS: CREATININE FINGERSTICK < 0.9 mg/dL (0.55-1.02); EGFR FINGERSTICK > 60.0000 mL/min (>60)
== END | disposition home or self-care (01) ==
PROVIDERS: Student in an Organized Health Care Education/Training Program; Referring Provider Internal Medicine Hematology & Oncology; Visit Provider Internal Medicine Hematology & Oncology
DX: C79.31 Secondary malignant neoplasm of brain (principal)
CPT/HCPCS: 70553; A9575

== ENCOUNTER → 2023-04-15 | Outpatient (CLI) | payer MEDICARE, SELFPAY ==
--- NOTE | 2023-04-15 08:10 | CT_ITS ---
INDICATION: F/U LUNG CANCER IV CONTRAST ONLY EXAMINATION: CT CHEST AND ABDOMEN WITH CONTRAST - CT Chest And Abdomen W/ Contrast Injection TECHNIQUE: Helically acquired images were obtained of the chest and abdomen. A radiation dose optimization technique was used for this scan. IV Contrast dosage and agent: 95 mL Isovue 300 Oral contrast: None. RADIATION dose: 432.44 DLP COMPARISON: April 09, 2022 FINDINGS: ----Chest: LUNGS, PLEURA AND LARGE AIRWAYS: There has been interval development of a slightly spiculated 1.2 cm nodule in the left upper lobe axial image 20. There has been interval development of a left hilar mass measuring 4.3 cm causing mild mass effect on the left pulmonary artery and its branches proximally. There has been interval development of 2 adjacent nodules in the left lower lobe measuring 0.8 and 1.2 cm, axial image 67. There is a stable 8 mm nodule in the lingula axial image 78. There has been interval development of a 1.6 cm nodule in the right upper lobe axial image 33. There has been interval development of a new 8 mm nodule in the right middle lobe axial image 66. There has been interval development of a 2.1 cm nodule in the right lower lobe axial image 93. There is a stable pleural-based nodule laterally in the right lower lobe axial image 88. There are stable 5 mm nodules in the right lower lobe axial image 78. There is a stable 6 mm nodule in the right lower lobe axial image 74 laterally. There has been interval development of a 4 mm nodule in the right lower lobe posteriorly on axial image 73. There are stable clustered 4 mm nodules in the right lower lobe axial image 81. There has been interval development of a 6 mm nodule in the right lower lobe posteriorly on axial image 67. There is a stable 3 mm nodule pleural-based in the right lower lobe axial image 62. There has been interval development of a 2.9 cm pleural-based paravertebral nodule in the right lower lobe axial image 59. No pleural effusion or thickening. No pneumothorax. THYROID: No thyroid lesions. HEART AND PERICARDIUM: Heart size is normal. No pericardial effusion. VESSELS: Thoracic aorta is not dilated. MEDIASTINUM AND SILVERIO: No mediastinal or hilar adenopathy. Esophagus is unremarkable. No hiatal hernia. BONES: There has been interval development of compression deformities of the T7, T10, T11 and L1 vertebral bodies. ----Abdomen (without Pelvis): LIVER: Homogeneous. No focal mass. GALLBLADDER AND BILIARY TREE: No calcified gallstones. No gallbladder distension or wall edema. No intra- or extrahepatic biliary ductal dilation. PANCREAS: No focal cystic or solid mass. SPLEEN: Normal size without focal cystic or solid mass. ADRENAL GLANDS: No nodules. KIDNEYS AND URETERS: Normal renal size and position. No hydronephrosis. PERITONEUM: No ascites or free air. No other fluid collection. BOWEL: No stomach or bowel distension. No focal inflammatory change. LYMPH NODES: No enlarged mesenteric or retroperitoneal lymph nodes. VESSELS: Aorta is non-dilated. ABDOMINAL WALL: No discrete abdominal wall hernia. BONES: No lytic or blastic abnormality. CT/CT Chest AND Abd W/ Contrast IMPRESSION: Significant interval development of multiple new nodules in the lungs and left hilar mass as described suggestive of neoplasm given the patient''s history. Interval development of compression fractures in the spine as described. Electronically Signed: Donal Rosas, at 8:11 EDT ,
[2023-04-15 08:52] LABS: EGFR FINGERSTICK > 60.0000 mL/min (>60)
== END | disposition home or self-care (01) ==
LOC: CT 08:07
PROVIDERS: Referring Provider Internal Medicine Hematology & Oncology; Visit Provider Internal Medicine Hematology & Oncology
DX: C34.12 Malignant neoplasm of upper lobe, left bronchus or lung (principal); C79.31 Secondary malignant neoplasm of brain
CPT/HCPCS: 71260; 74160; Q9967; A4216

== ENCOUNTER 2023-05-17 07:40 | Outpatient (CLI) | payer MEDICARE, SELFPAY ==
[2023-05-17] VITALS (11 sets, daily range): BP systolic 89–142; BP diastolic 53–81; PULSE 65–80; RESP 14–19; TEMP 36.2; O2SAT 92–99; BMI 18.6
--- NOTE | 2023-05-17 | LUNB_PTH ---
PATIENT: MEREDITH BLUE LOC: CT U#:[id number] AGE/SX: 67/F ROOM: RE05/17/[address]: Dr. Ari Masterson MD : 1955 BED: DIS: 05/17/2023 SPEC #: [id number] RECD: 05/17/23 09:40 STATUS: SHIVA GLORIA #: [id number] MARIA ESTHER: 05/17/23 00:[address]: Ari Masterson DEPT: SURGICAL PATHOLOGY RECD BY: Shraddha Kennedy ENTERED: 05/17/23 09:40 SP TYPE: LUNG BX OTHR DR: Racquel [facility] Tissues: Lung, NOS Procedures: Surgery Specimen Level IV HEADER OPERATION: CT-guided right lung biopsy PRE-OP DIAGNOSIS: RLL lung mass TISSUE SUBMITTED: RLL lung mass 20-gauge x7 MICROSCOPIC DIAGNOSIS RLL lung mass, CT-guided core biopsy: Scant fragment of lung parenchymal tissue, fibroadipose tissue, skeletal muscle tissue and liver parenchymal tissue, negative for malignancy. See comment. BREANNE:vijay 05/18/2023 COMMENT The specimen is evaluated at the time of biopsy by Dr. Cantrell. Immediate Evaluation = Negative for malignant cells. Correlation with clinical, radiologic findings and appropriate follow up are necessary. MICROSCOPIC DESCRIPTION Slides are reviewed. GROSS DESCRIPTION Received in fixative is one container labeled with the patient's name and designated RLL lung mass. The specimen consists of multiple irregular fragments of carrillo soft tissue that in aggregate measure 0.5 x 0.1 x 0.1 cm. Seven touch imprints are prepared at the time of core biopsy. The entire specimen is submitted in one cassette. / BREANNE:vijay 05/17/2023 TC: Cannot code CPT: 32875, 53461
--- NOTE | 2023-05-17 07:56 | CT_ITS ---
PROCEDURE: CT GUIDED CORE NEEDLE BIOPSY OF A right lower lobe LUNG LESION INDICATION: Female, 67 years old. Metastatic pulmonary nodules. PHYSICIAN: Dr. Guzman Maya CONSENT: Written informed consent was obtained having explained the risks, benefits and alternatives in detail with the patient who accepted the risks and agreed to proceed. Laboratory review and clinical assessment was performed. CONSCIOUS SEDATION PROTOCOL: The Drugs used were: 2 mg Versed, IV., and 50 mcg Fentanyl, IV. The sedation time was: 25 minutes. Conscious sedation was started at 8:58 AM and terminated at 9:23 AM. The patient was independently monitored by the department nurse. The conscious sedation protocol was independently monitored. RADIATION DOSAGE (If Supplied By Facility): CTDIvol = ( 10.5 ) mGy, DLP = ( 506.58 ) mGycm Individualized dose optimization techniques were used for this CT. TECHNIQUE: The patient was placed in the prone position. A noncontrast CT was performed to localize the lesion in the posterior aspect of the right lower lobe . The skin surface was prepped and draped in a sterile fashion. 1% lidocaine was used for local anesthesia. Using CT guidance, a 20-gauge coaxial biopsy device was advanced to the periphery of the lesion. A total of 7 core specimens were obtained. The specimens were placed in a formalin solution. A post procedure CT demonstrated no adverse sequelae or pneumothorax. The patient tolerated the procedure well without adverse event. A negative biopsy does not exclude malignancy. Further imaging or clinical followup based on patient condition and degree of clinical suspicion for malignancy. Suggest rebiopsy, if biopsy results do not match with clinical scenario. CT/Biopsy/Inj or Needle Placement IMPRESSION: 1. CT directed core needle biopsy of the right lower lobe pulmonary nodule using CT image guidance with image documentation as described. Pathology results are pending. 2. Conscious Sedation protocol utilized with independent monitoring. Electronically Signed: Werner Hinds MD at 9:44 EDT ,
[2023-05-17 08:05] LABS: Absolute Lymphocyte Count 1.44 X10^3/uL (0.83-4.51); Absolute Neutrophil Count 3.7 X10^3/uL (2.0-7.7); Basophil# 0.04 X10^3/uL; Basophil% 0.7 % (0-1); Eosinophil# 0.03 X10^3/uL; Eosinophils% 0.5 % (0-5); Hematocrit 47.2 % (37-47); Hemoglobin 15.9 g/dL (12.0-15.0); Lymphocyte # 1.44 X10^3/ul (0.83-4.51); Lymphocyte % 25.5 % (19-41); Mean Corp Hgb Conc 33.7 g/dL (32-36); Mean Corpuscular Hgb 32.1 pg (27.0-32.0); Mean Corpuscular Volume 95.4 fL (81-99); Mean Platelet Vol. 9.1 fl (6.2-12.0); Monocyte# 0.45 X10^3/uL; NRBC Flagged by Analyzer 0 % (0-5); Neutrophil # 3.66 X10^3/uL (2.7-7.7); Neutrophil % 64.9 % (47-70); Platelet Count 290 K/mm3 (150-450); RBC Distribution Width CV 12.2 % (11.6-14.6); RBC Distribution Width SD 42.5 fl (35.1-43.9); Red Blood Count 4.95 M/mm3 (4.2-5.4); White Blood Count 5.6 K/mm3 (4.4-11.0)
[2023-05-17 08:23] LABS: ALB/GLOB Ratio 0.9 RATIO (0.9-2.4); AST(SGOT) 33 U/L (15-37); Alanine Aminotransfer ALT/SGPT 15 U/L (13-56); Albumin, Serum 3.6 g/dL (3.2-5.0); Alkaline Phosphatase 88 U/L (45-117); Anion Gap 5 (5-15); BUN 8 mg/dL (7-18); BUN/Creat Ratio 12.9 RATIO (10-20); Calcium,Total 9.8 mg/dL (8.5-10.1); Chloride 101 mmol/L (98-107); Creatinine, Serum 0.62 mg/dL (0.55-1.02); EST Glomerular Filtration Rate 101 mL/min (>60); Est Glom Filt Rate - Afr Amer 123 mL/min (>60); Estimated Creatinine Clearance 43.78 ml/min; Globulin 4.1 g/dL (2.2-4.2); Glucose 114 mg/dL (74-106); Protein, Total 7.7 g/dL (6.4-8.2); Sodium Level 134 mmol/L (136-145)
[2023-05-17 08:26] LABS: Prothrombin Time (Protime)PT. 13.3 SECONDS (11.7-14.9)
[2023-05-17] MEDS: Midazolam 2 MG/2 ML Syringe IV (08:58)
[2023-05-17] MEDS: fentaNYL 100 MCG/2 ML Ampul IV (08:59)
[2023-05-17] MEDS: Lidocaine 2% (20 ml mdv) 20 ML Vial INFILT (09:15)
--- NOTE | 2023-05-17 09:35 | RAD_ITS ---
INDICATION: post lung biopsy -- Immediately post lung biopsy EXAMINATION/TECHNIQUE: X-RAY - XR Chest 2 Views COMPARISON: FINDINGS: LINES/DEVICES: None. LUNGS: Multiple nodules are noted in the lungs. No pleural effusions are noted. No pneumothorax is identified.. MEDIASTINUM AND CARDIOVASCULAR STRUCTURES: Cardiac silhouette not enlarged. Central airways and mediastinal contour are unremarkable. BONES AND SOFT TISSUES: Old left-sided rib fractures are noted.. RAD/Chest Insp/Exp 2 View IMPRESSION: Multiple lung nodules as described. No evidence for pneumothorax. Electronically Signed: Donal Rosas, at 10:39 EDT ,
--- NOTE | 2023-05-17 11:30 | RAD_ITS ---
STUDY: X-RAY CHEST REASON FOR EXAM: Female, 67 years old. 2 hr post lung biopsy -- 2 hours post lung biopsy TECHNIQUE: AP inspiration and expiration views. COMPARISON: Comparison is made with prior study done earlier in the day. FINDINGS: No evidence of a pneumothorax following the right lung biopsy. Persistent right pulmonary nodules. RAD/Chest Insp/Exp 2 View IMPRESSION: No evidence of right-sided pneumothorax following the right lung biopsy. Electronically Signed: Werner Hinds MD at 13:44 EDT ,
[2023-05-17 15:47] LABS: Xtra Tube EP Lab EXTRA TUBE
== END 2023-05-17 23:59 | disposition home or self-care (01) ==
PROVIDERS: Referring Provider Internal Medicine Hematology & Oncology; Visit Provider Internal Medicine Hematology & Oncology
DX: C34.12 Malignant neoplasm of upper lobe, left bronchus or lung (principal); C79.31 Secondary malignant neoplasm of brain; Z86.79 Personal history of other diseases of the circulatory system
CPT/HCPCS: 32408; 36415; 71046; 77012; 80053; 85025; 85610; 85730; 88305; 99156; J7050; A4216; C2613

== ENCOUNTER 2023-06-08 07:39 | Outpatient (CLI) | payer MEDICARE, SELFPAY ==
[2023-06-08] VITALS (11 sets, daily range): BP systolic 94–138; BP diastolic 60–77; PULSE 66–77; RESP 14–18; TEMP 36.2–36.3; O2SAT 93–100; BMI 17.4
--- NOTE | 2023-06-08 | ASPIGT_PTH ---
PATIENT: MEREDITH BLUE LOC: CT U#:[id number] AGE/SX: 67/F ROOM: RE06/08/[address]: Dr. Ari Masterson MD : 1955 BED: DIS: 06/08/2023 SPEC #: [id number] RECD: 06/08/23 09:41 STATUS: SHIVA CASTRO #: [id number] MARIA ESTHER: 06/08/23 00:[address]: Ari Masterson DEPT: SURGICAL PATHOLOGY RECD BY: Joon Aragon ENTERED: 06/08/23 09:41 SP TYPE: ASP RAD OTHR DR: Racquel [facility] Tissues: Lung, NOS Procedures: FNA Specimen Adequacy Special Stain Group II Surgery Specimen Level IV Imprint (control) HEADER OPERATION: CT-guided right lower lobe lung biopsy PRE-OP DIAGNOSIS: Right lower lobe lung mass TISSUE SUBMITTED: Right infrahilar nodule 20-gauge x4 MICROSCOPIC DIAGNOSIS Right lower lobe of lung, infra-hilar nodule, CT-guided needle core biopsy: Adenocarcinoma. See comment. AM:vijay 06/09/2023 COMMENT The specimen is evaluated at the time of biopsy by Dr. Nam. Immediate Evaluation = Positive for malignant cells, consistent with non-small cell carcinoma. Immunohistochemistry ([id number]) supports the above diagnosis and is consistent with a lung primary. Reference is made to the patient's previous left lung, CT-guided core biopsy from 07/31/21 ([id number]), in which non-small cell carcinoma consistent with lung primary was identified. MICROSCOPIC DESCRIPTION Slides are reviewed. GROSS DESCRIPTION Received is one container labeled with the patient's name and not further designated. The specimen consists of multiple irregular and elongated fragments of light carrillo soft tissue that in aggregate measure 1.0 x 0.1 x <0.1 cm. The specimen is totally submitted in one cassette. / AM:vijay 06/08/2023 TC:0 CPT: 88494, 27970
--- NOTE | 2023-06-08 | IMM_PTH ---
PATIENT: MEREDITH BLUE LOC: CT U#:[id number] AGE/SX: 67/F ROOM: RE06/08/[address]: Dr. Ari Masterson MD : 1955 BED: DIS: 06/08/2023 SPEC #: [id number] RECD: 06/09/23 10:29 STATUS: SHIVA REQ #: [id number] MARIA ESTHER: 06/08/23 00:[address]: Ari Masterson DEPT: IMMUNOHISTOCHEMISTRY RECD BY: Keeley Morillo ENTERED: 06/09/23 10:33 SP TYPE: IMMUNO OTHR DR: [facility] Tissues: Right lower lobe of lung, NOS Procedures: RCC (add) NAPSIN A (add) CA-125 (add) Wiley Ret (add) CEA (add) CK20 (add) CK5-6 (add) CK7 (add) CK8 (add) GINNY (add) HEP PAR (add) KI-67 (add) MAMM (add) P53 (add) NC (add) TTF1 (add) Vimentin (add) 34BE12 (add) Pankeratin (add) GATA3 (add) P40 (add) CDX2 (add) ER (initial) S-100 (add) PHYSICIAN & [place] [id number] SPECIMEN INFORMATION: Tissue Source: Right infrahilar nodule Clinical Info: Right lower lobe lung mass Specimen Number: [id number] CPT code: 80636, 27498 x23 METHODOLOGY: Deparaffinized sections of prefer/formalin-fixed tissue or PAP/DQ stained slides are incubated with monoclonal/polyclonal antibodies/oligonucleotide probes. Localization is made via biotin free immunoperoxidase method. Appropriate controls are performed and reacted as expected. Results on target cell population are indicated in the following table: RESULTS: ANTIBODY / CLONE RESULT ER (6F11) negative NC (1E2) negative Mammaglobin (31A5) negative GATA3 (L50-823) negative AE1-3 (AE1/AE3/PCK26) positive CK7 (OV-TL12/30) positive CK8 (50klhnS19) positive CK20 (KS20.8) negative CDX2 (EDB9302X) negative Vimentin (V9) negative 34BE12 (34BE12) positive, dim S-100 (4C4.9) negative TTF-1 (8G7G3/1) positive Napsin A (Rabbit Polyclonal) positive HepPar (OCh1E5) positive RCC (PN-15) negative CALRET (polyclonal) negative CK5-6 (D5 & 1684) negative P40 (BC28) negative GINNY (E29) positive CEA (11-7/TF-3HB-1) positive CA125 (OC125) negative P53 (DO-7) positive, 2% (null pattern or wild type pattern) Ki-67 (30-9) positive, 80% These tests were developed and their performance characteristics determined by [facility]. They may not have been cleared or approved by the U.[place]. Food and Drug Administration. The FDA has determined that such clearance or approval is not necessary. The above immunohistochemical/dualISH markers are ordered and reviewed by the Pathologist. INTERPRETATION: Right lower lobe of lung, infrahilar nodule, CT-guided needle core biopsy: Adenocarcinoma. See comment. AM:vijay 06/10/2023 Comment: The IHC profile is consistent with a lung primary.
--- NOTE | 2023-06-08 07:52 | CT_ITS ---
PROCEDURE: CT GUIDED right lower lobe lung biopsy. DATE: June 08, 2023. INDICATION: Female, 67 years old. Pulmonary nodules. History of non-small cell lung cancer. PHYSICIAN: Werner Hinds M.D. RADIATION DOSAGE (If Supplied By Facility): CTDIvol = ( 21 ) mGy, DLP = ( 315.88 ) mGycm. Individualized dose hospitalization techniques were utilized. PROCEDURE: The risks, benefits, and alternatives to the procedure were explained to the patient. The specific risk of hemorrhage requiring further treatment or intervention was detailed and accepted. Follow-up instructions were discussed with the patient as well. Written informed consent was obtained. The patient was brought into the CT suite and placed in the prone position. . An appropriate entry site was identified. The overlying skin was prepped and draped in the usual sterile fashion. 1% lidocaine was administered subcutaneously for local anesthesia. Conscious sedation was performed. The patient received 1 mg of Versed and 25 mcg of fentanyl intravenously. Conscious sedation was started at 9:15 AM and 9:30. The patient was independently monitored by the department nurse. Under CT guidance, a total of 4 passes were performed utilizing a 20-gauge core biopsy needle. The specimens were then placed in the appropriate fluid and transported to the laboratory for analysis. Hemostasis was obtained. The patient tolerated the procedure well without immediate complications. CT/Biopsy/Inj or Needle Placement IMPRESSION: Successful CT guided percutaneous biopsy of the right lower lobe pulmonary nodule, as described above. The conscious sedation protocol was followed. Electronically Signed: Werner Hinds MD at 10:03 EDT ,
[2023-06-08 07:58] LABS: Absolute Lymphocyte Count 1.34 X10^3/uL (0.83-4.51); Absolute Neutrophil Count 3.7 X10^3/uL (2.0-7.7); Basophil# 0.04 X10^3/uL; Basophil% 0.7 % (0-1); Eosinophil# 0.02 X10^3/uL; Eosinophils% 0.4 % (0-5); Hematocrit 46.7 % (37-47); Hemoglobin 15.6 g/dL (12.0-15.0); Lymphocyte # 1.34 X10^3/ul (0.83-4.51); Lymphocyte % 24.5 % (19-41); Mean Corp Hgb Conc 33.4 g/dL (32-36); Mean Corpuscular Hgb 31.4 pg (27.0-32.0); Mean Platelet Vol. 9.3 fl (6.2-12.0); Monocyte# 0.39 X10^3/uL; Monocyte% 7.1 % (0-10); NRBC Flagged by Analyzer 0 % (0-5); Neutrophil # 3.65 X10^3/uL (2.7-7.7); Neutrophil % 66.9 % (47-70); Platelet Count 306 K/mm3 (150-450); RBC Distribution Width CV 12.1 % (11.6-14.6); RBC Distribution Width SD 41.8 fl (35.1-43.9); Red Blood Count 4.97 M/mm3 (4.2-5.4); White Blood Count 5.5 K/mm3 (4.4-11.0)
[2023-06-08 08:09] LABS: Prothrombin Time (Protime)PT. 13.4 SECONDS (11.7-14.9)
[2023-06-08 08:10] LABS: Partial Thromboplast Time 26.6 Seconds (24.1-36.2)
[2023-06-08] MEDS: 0.9% Saline Lock 10 ML Syringe IV (08:51)
[2023-06-08] MEDS: fentaNYL 100 MCG/2 ML Ampul IV (09:15)
[2023-06-08] MEDS: Midazolam 2 MG/2 ML Syringe IV (09:15)
--- NOTE | 2023-06-08 09:15 | RAD_ITS ---
STUDY: X-RAY CHEST REASON FOR EXAM: Female, 67 years old. Immediately post thoracentesis -- Immediately post lung biopsy TECHNIQUE: AP inspiration and expiration views. COMPARISON: Comparison is made with prior study dated May 17, 2023. FINDINGS: The patient is status post right lung biopsy. No evidence of pneumothorax. Once again, there are bilateral pulmonary nodules. RAD/Chest Insp/Exp 2 View IMPRESSION: No evidence of pneumothorax following a right lung biopsy. Electronically Signed: Werner Hinds MD at 10:00 EDT ,
[2023-06-08] MEDS: Lidocaine 2% (20 ml mdv) 20 ML Vial INFILT (09:20)
--- NOTE | 2023-06-08 11:37 | RAD_ITS ---
STUDY: X-RAY CHEST REASON FOR EXAM: Female, 67 years old. 2 hours post lung biopsy TECHNIQUE: A PA inspiration expiration views. COMPARISON: Comparison is made with prior study done earlier today. FINDINGS: No evidence of a right-sided pneumothorax on the 2 hour post right lung biopsy radiographs. RAD/Chest Insp/Exp 2 View IMPRESSION: No evidence of pneumothorax on the 2 hour post right lung biopsy radiographs. Electronically Signed: Werner Hinds MD at 12:42 EDT ,
== END 2023-06-08 23:59 | disposition home or self-care (01) ==
PROVIDERS: Referring Provider Internal Medicine Hematology & Oncology; Visit Provider Internal Medicine Hematology & Oncology
DX: C34.31 Malignant neoplasm of lower lobe, right bronchus or lung (principal); I48.91 Unspecified atrial fibrillation; R91.8 Other nonspecific abnormal finding of lung field; Z85.118 Personal history of other malignant neoplasm of bronchus and lung; R91.1 Solitary pulmonary nodule
CPT/HCPCS: 32408; 36415; 71046; 77012; 85025; 85610; 85730; 88172; 88305; 88313; 88341; 88342; J7050; C2613